=== PATIENT | female | born 2000 | race Caucasian/White ===

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

== ENCOUNTER 2022-02-25 22:50 | Emergency (ER) | payer BC ==
--- OUTSIDE RECORDS SUMMARY | 2022-02-25 22:53 | XMS REPORT | Continuity of Care Document ---
:2000 Author Organization [facility] t Address [address] [place] [address] Care Team Providers Name Role Phone Sanjay Navas Attending Clinician Unavailable SHONA Attending Clinician Unavailable Problems This patient has no known problems. Allergies, Adverse Reactions, Alerts This patient has no known allergies or adverse reactions. Medications Ordered Filled Start Stop Current Ordering Indication Dosage Frequency Signature Comments Components Source Medication Medication Date Date Medication? Clinician (SIG) Name Name Syringe Syringe Yes Alfie as Commo n 213 Navas directed [facility] 00:00: - [facility] Cyanocobala Cyanocobala 2019- No Alfie 1 ml Common min min 2-13 04-21 [facility] 00:00: 00:[address] - [facility] 00 :00 [facility] Wellbutrin Wellbutrin Yes Alfie 1 tablet Common XL XL Navas in the [facility] morning - [facility] Immunizations Ordered Immunization Filled Immunization Date Status Commen ts Source Name Name Gardasil, HPV Gardasil, HPV 2018-11-22 Completed Common [facility] 9-valent, IM 9-valent, IM 00:00:00 - [facility] Gardasil, HPV Gardasil, HPV 2018-07-24 Completed Common S pirit 9-valent, IM 9-valent, IM 00:00:00 - [facility] Gardasil, HPV Gardasil, HPV 2018-05-24 Completed Common S pirit 9-valent, IM 9-valent, IM 00:00:00 [facility] Procedures This patient has no known procedures. Encounters Start End Encounter Admission Attending Care Care Encounter Source Date/Time Date/Time Type Type Clinicians Facility Department ID 2021-11-04 Outpatient Navas, [facility] [id number] Common 12:28:16 Alfie [id number] [facility] 2021-11-04 Outpatient Yosef [facility] ST[facility] [id number] Common 12:23:15 Alfie [id number] [facility] 2021-02-02 2021-02-02 Emergency LE, ROWENA [facility] [id number] [place] 00:00:00 00:00:[address] 2020-10-15 2020-10-15 Outpatient [facility] ST[facility] [id number] Common 00:00:00 00:00:00 [facility] 2018-11-22 2018-11-22 [facility] [id number] Common 16:00:00 16:00:[address] [facility] 2018-07-24 2018-07-24 [facility] [id number] Common 08:15:00 08:15:[address] [facility] 2018-07-12 2018-07-12 [facility] [id number] Common 14:14:00 14:14:[address] [facility] 2018-05-24 2018-05-24 [facility] [id number] Common 13:45:00 13:45:[address] [facility] 2018-05-22 2018-05-22 [facility] [id number] Common 17:11:00 17:11:[address] [facility] 2018-05-16 2018-05-16 [facility] [id number] Common 09:30:00 09:30:[address] [facility] Results This patient has no known results.
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
[2022-02-26 01:16] VITALS: BP 125/87; O2SAT 100
[2022-02-26 01:18] VITALS: TEMP 98.3
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
== END 2022-02-26 00:47 | disposition home or self-care (01) ==
LOC: ER 22:50
DX: S09.90XA Unspecified injury of head, initial encounter (principal); Y04.2XXA Assault by strike against or bumped into by another person, initial encounter; F20.9 Schizophrenia, unspecified
CPT/HCPCS: 70450; 99284

== ENCOUNTER 2022-04-27 18:12 | Emergency (ER) | payer BC ==
[2022-04-27 18:59] LABS: Absolute Lymphocytes (CBC) 1.1 K/uL (0.7-4.9); Hematocrit 38.2 % (36.0-45.0); Lymphocytes % 15.8 % (15.3-44.8); MCV 94.2 fL (80-100); MPV 8.8 fL (7.6-11.3); RBC Red Blood Cell Count 4.06 M/uL (3.86-4.86)
[2022-04-27] MEDS ORDERED: NA CHLORIDE 0.9% 1,000 ML ONE (19:01)
[2022-04-27 19:08] LABS: Potassium 3.7 mmol/L (3.5-5.1)
[2022-04-27 19:53] LABS: Urine Blood Negative (Negative); Urine Glucose Negative (Negative); Urine Protein Negative (Negative)
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
[2022-04-27 21:43] VITALS: TEMP 99.4; O2SAT 100
[2022-04-27 21:51] VITALS: BP 132/84
--- OUTSIDE RECORDS SUMMARY | 2022-04-29 14:38 | XMS REPORT | Continuity of Care Document ---
:[address] [facility] t Address [address] [place] [address] Care Team Providers Name Role Phone Sanjay [...] Alfie as Commo n 213 Navas directed [facility] 00:00: - [facility] Cyanocobala Cyanocobala 2019- No Alfie 1 ml Common min min 2-13 04-21 Navas [facility] 00:00: 00:00 - 00 :00 [facility] Wellbutrin Wellbutrin Yes Alfie 1 tablet Common XL XL Navas in the Spirit morning - [facility] Immunizations Ordered Immunization Filled Immunization Date Status Commen ts Source Name Name Gardasil, HPV Gardasil, HPV 2018-11-22 Completed Common S pirit 9-valent, IM 9-valent, IM 00:00:00 - [facility] Gardasil, HPV Gardasil, HPV 2018-07-24 Completed Common S pirit 9-valent, IM 9-valent, IM 00:00:00 - [facility] Gardasil, HPV Gardasil, HPV 2018-05-24 Completed Common S pirit 9-valent, IM 9-valent, IM 00:00:00 [facility] Procedures This patient has no known procedures. Encounters Start End Encounter Admission Attending Care Care Encounter Source Date/Time Date/Time Type Type Clinicians Facility Department ID 2021-11-04 Outpatient Navas, STSERGEI STLMLC [id number] Common 12:28:16 Alfie [id number] [facility] 2021-11-04 Outpatient Yosef STSERGEI STLMLC [id number] Common 12:23:15 Alfie [id number] [facility] 2021-02-02 2021-02-02 Emergency LE, ROWENA [facility] [id number] [place] 00:00:00 00:00:[address] 2020-10-15 2020-10-15 Outpatient STLMLC STLC [id number] Common 00:00:00 00:00:00 [facility] 2018-11-22 2018-11-22 [facility] [id number] Common 16:00:00 16:00:[address] [facility] 2018-07-24 2018-07-24 [facility] [id number] Common 08:15:00 08:15:[address] [facility] 2018-07-12 2018-07-12 [facility] [id number] Common 14:14:00 14:14:[address] [facility] 2018-05-24 2018-05-24 [facility] [id number] Common 13:45:00 13:45:[address] [facility] 2018-05-22 2018-05-22 [facility] [id number] Common 17:11:00 17:11:[address] [facility] 2018-05-16 2018-05-16 [facility] [id number] Common 09:30:00 09:30:[address] [facility] Results This patient has no known results.
== END 2022-04-27 21:38 | disposition home or self-care (01) ==
LOC: ER 18:12
DX: M54.9 Dorsalgia, unspecified (principal); M62.830 Muscle spasm of back; M54.2 Cervicalgia; V49.49XA Driver injured in collision with other motor vehicles in traffic accident, initial encounter
CPT/HCPCS: 85025; 80048; 36415; 86900; 86850; 81025; 86901; 81003; 70450; 72125; 71260; 74177; Q9967; J7030; 96360; 96361; 99284

== ENCOUNTER 2022-06-22 14:16 | Emergency (ER) | payer BC ==
--- OUTSIDE RECORDS SUMMARY | 2022-06-22 14:19 | XMS REPORT | Continuity of Care Document ---
:2000 Author Organization [facility] t Address [address] [place] [address] Care Team Providers Name Role Phone Asked, No Pcp Primary Care Physician Unavailable Alfie Navas Attending Clinician Unavailable ROWENA NAGEL Attending Clinician Unavailable Problems This patient has no known problems. Allergies, Adverse Reactions, Alerts This patient has no known allergies or adverse reactions. Social History Social Habit Start Date Stop Date Quantity Comments Source History [facility] Drinks History [facility] Tobacco use and 2021-02-02 2021-02-02 Smokeless tobacco [facility] exposure 00:00:00 00:00:00 non-user Hospital Alcohol intake 2021-02-02 2021-02-02 Lifetime [facility] 00:00:00 00:00:00 non-drinker Hospital (finding) History [facility] 2021-02-02 2021-02-02 1 [facility] Alcohol Frequency 00:00:00 00:00:00 Hospita l Sex Assigned At [birth year] [facility] 00:00:00 00:00:00 Hospital Smoking Status Start Date Stop Date Source Never smoked tobacco [facility] Medications Ordered Filled Start Stop Current Ordering Indication Dosage Frequency Signature Comments Components Source Medication Medication Date Date Medication? Clinician (SIG) Name Name No known No No known Metho di medications 02-[address] 15:35: s Hospita 58 l Syringe Syringe Yes Aflie as Commo n 2-13 Navas directed Spirit 00:00: - [facility] 00 [facility] Cyanocobala Cyanocobala 2019-0 2019- No Alfie 1 ml Common min min 2-13 -13 Navas [facility] 00:00: 00:00 - [facility] 00 :00 [facility] Wellbutrin Wellbutrin Yes Alfie 1 tablet Common XL XL Navas in the Spirit morning - [facility] Immunizations Ordered Immunization Filled Immunization Date Status Commen ts Source Name Name Gardasil, HPV Gardasil, HPV 2018-11-22 Completed Common S pirit 9-valent, IM 9-valent, IM 00:00:00 - [facility] Gardasil, HPV Gardasil, HPV 2018-07-24 Completed Common S pirit 9-valent, IM 9-valent, IM 00:00:00 - [facility] Gardasil, HPV Gardasil, HPV 2018-05-24 Completed Common S pirit 9-valent, IM 9-valent, IM 00:00:00 - [facility] Procedures This patient has no known procedures. Plan of Care Planned Activity Planned Date Details Comments Source Future Scheduled 2022-06-22 HEPATITIS B VACCINES Met [facility] Test 14:19:26 (1 of 3 - 3-dose series) [code = HEPATITIS B VACCINES (1 of 3 - 3-dose series)] Future Scheduled 2022-06-22 COVID-19 VACCINE (#1) [facility] Test 14:19:26 [code = COVID-19 VACCINE (#1)] Future Scheduled 2022-06-22 Screening for [facility] Test 14:19:26 Chlamydia trachomatis (procedure) [code = 829663641] Future Scheduled 2022-06-22 Hepatitis C screening [facility] Test 14:19:26 (procedure) [code = 903834780] Future Scheduled 2022-06-22 INFLUENZA VACCINE Method [facility] Test 14:19:26 [code = INFLUENZA VACCINE] Encounters Start End Encounter Admission Attending Care Care Encounter Source Date/Time Date/Time Type Type Clinicians Facility Department ID 2021-11-04 Outpatient Navas, [facility] [id number] Common 12:28:16 Alfie [id number] [facility] 2021-11-04 Outpatient Navas, STLMLC STLMLC [id number] Common 12:23:15 [facility] [id number] [facility] 2021-02-02 2021-02-02 Emergency LEROWENA [facility] [id number] [place] 00:00:00 00:00:[address] 2020-10-15 2020-10-15 Outpatient STLMLC STLMLC [id number] Common 00:00:00 00:00:00 [facility] 2018-11-22 2018-11-22 [facility] [id number] Common 16:00:00 16:00:[address] [facility] 2018-07-24 2018-07-24 [facility] [id number] Common 08:15:00 08:15:[address] [facility] 2018-07-12 2018-07-12 [facility] [id number] Common 14:14:00 14:14:[address] [facility] 2018-05-24 2018-05-24 [facility] [id number] Common 13:45:00 13:45:[address] [facility] 2018-05-22 2018-05-22 [facility] [id number] Common 17:11:00 17:11:[address] [facility] 2018-05-16 2018-05-16 [facility] [id number] Common 09:30:00 09:30:[address] [facility] Results This patient has no known results.
--- NOTE | 2022-06-22 15:52 | ER ---
Nurse's Notes [facility] Name: Kari Kaplan Age: 22 yrs Sex: Female : 2000 Arrival Date: 06/22/2022 Time: 14:19 Bed Waiting Private MD: Diagnosis: ED Course: 06/22 14:19 Patient arrived in ED. rg4 15:12 Louis Esteban PA is PHCP. cp 15:12 Louis Almeida MD is Attending Physician. cp 15:47 Patient's name was called from ER [facility]. No response. Unable to locate patient. Will bm7 disposition as left without being seen by a provider. Administered Medications: No medications were administered Outcome: 15:51 Patient left the ED. jl7 16:03 Patient left the ED. jl7 Signatures: Louis Esteban PA PA cp Garcia, Rubi rg4 Angelita Carroll RN RN jl7 Belinda Molina RN RN bm7
== END 2022-06-22 16:03 | disposition left against medical advice (07) ==
LOC: ER 14:16
DX: Z02.9 Encounter for administrative examinations, unspecified (principal)

== ENCOUNTER 2022-08-23 18:37 | Inpatient (IN) | payer BC ==
[2022-08-23 20:07] LABS: Absolute Lymphocytes (CBC) 0.4 K/uL (0.7-4.9); Lymphocytes % 4.6 % (15.3-44.8); MCV 93.3 fL (80-100); MPV 9.3 fL (7.6-11.3); RBC Red Blood Cell Count 4.29 M/uL (3.86-4.86)
--- OUTSIDE RECORDS SUMMARY | 2022-08-23 20:19 | XMS REPORT | Continuity of Care Document ---
:2000 Author Organization [facility] t Address [address] [place] [address] Care Team Providers Name Role Phone Asked, No Pcp Primary Care Physician Unavailable Alfie Navas Attending Clinician Unavailable ROWENA NAGEL Attending Clinician Unavailable Payers Payer Name Policy Type Policy Number Effective Date Expiration Date S ource Blue Cross and C1 [id number] 2017 Common S pirit Blue Shield 00:00:00 - [facility] Problems Condition Condition Condition Status Onset Resolution Last Treating Co mments Source Name Details Category Date Date Treatment Clinician Date [id number] Bilateral Problem Active Com mon leg Spirit numbness - [facility] [id number] Depression Problem Active Com mon with Spirit anxiety - [facility] [id number] PTSD Problem Active Common (post-trau Spirit matic - [facility] disorder[facility] [id number] Vitamin Problem Active Commo n B12 Spirit deficiency - [facility] [id number] Back pain Problem Active Com mon with Spirit radiculopa - [facility] [id number] Discolorat Problem Active Co mmon ion of Spirit skin of - [facility] multiple [facility] lower [facility] extremity Center Allergies, Adverse Reactions, Alerts This patient has no known allergies or adverse reactions. Social History Social Habit Start Date Stop Date Quantity Comments Source History [facility] Drinks [facility] History of Common Spirit - Tobacco Use [facility] Alcohol intake 2021-02-02 2021-02-02 Lifetime [facility] 00:00:00 00:00:00 non-drinker Hospital (finding) History [facility] 2021-02-02 2021-02-02 1 [facility] Alcohol Frequency 00:00:00 00:00:00 Hospita l Tobacco use and 2021-02-02 2021-02-02 Smokeless tobacco [facility] exposure 00:00:00 00:00:00 non-user Hospital Sex Assigned At [birth year] [facility] 00:00:00 00:00:00 Hospital Smoking Status Start Date Stop Date Source Never Smoker Common [facility] Medications Ordered Filled Start Stop Current Ordering Indication Dosage Frequency Signature Comments Components Source Medication Medication Date Date Medication? Clinician (SIG) Name Name No known No No known Metho di medications 02-[address] 15:35: s Hospita 58 l No known No No known Metho di medications 02-[address] 15:35: s Hospita 58 l Syringe Syringe Yes Alfie as Commo n 13 Navas directed Spirit 00:00: - [facility] Cyanocobala Cyanocobala 2019- No Alfie 1 ml Common min min 213 04-21 Navas Spirit 00:00: 00:[address] [facility] 00 :00 [facility] Wellbutrin Wellbutrin Yes Alfie 1 tablet Common XL XL Navas in the Spirit morning - [facility] Aripiprazol Aripiprazol No Aripiprazo e 5 MG e 5 MG le 5 MG BuPROPion BuPROPion No BuPROPion HCl 75 MG HCl 75 MG HCl 75 MG Lamotrigine Lamotrigine No Lamotrigin 25 MG 25 MG e 25 MG Cyanocobala Cyanocobala No Cyanocobal min 1000 min 1000 ng 1000 MCG/ML MCG/ML MCG/ML Quetiapine Quetiapine No Quetiapine Fumarate 25 Fumarate 25 Fumarate MG MG 25 MG Syringe 25G Syringe 25G No Syringe X 1" 3 ML X 1" 3 ML 25G X 1" 3 ML Immunizations Ordered Immunization Filled Immunization Date Status Commen ts Source Name Name Gardasil, 9-valent Gardasil, 9-valent 2018-11-22 Completed Common Spirit 16:25:00 - [facility] Vitamin B12 Vitamin B12 2018-11-22 Completed Common Spiri t (Cyanocobalamin) (Cyanocobalamin) 16:24:00 - [facility] Gardasil, HPV Gardasil, HPV 2018-11-22 Completed Common S pirit 9-valent, IM 9-valent, IM 00:00:00 [facility] Vitamin B12 Vitamin B12 2018-07-24 Completed Common Spiri t (Cyanocobalamin) (Cyanocobalamin) 09:01:00 - [facility] Gardasil, 9-valent Gardasil, 9-valent 2018-07-24 Completed Common Spirit 08:59:00 - [facility] Gardasil, HPV Gardasil, HPV 2018-07-24 Completed Common S pirit 9-valent, IM 9-valent, IM 00:00:00 [facility] Vitamin B12 Vitamin B12 2018-05-24 Completed Common Spiri t (Cyanocobalamin) (Cyanocobalamin) 14:07:00 - [facility] Gardasil, 9-valent Gardasil, 9-valent 2018-05-24 Completed Common Spirit 14:06:00 - [facility] Gardasil, HPV Gardasil, HPV 2018-05-24 Completed Common S pirit 9-valent, IM 9-valent, IM 00:00:00 [facility] Vital Signs Vital Name Observation Time Observation Value Comments Source height 2020-10-15 10:50:00 62 [in_i] Common S pirit [facility] weight 2020-10-15 10:50:00 129.6 [lb_av] Common Spirit [facility] temperature 2020-10-15 10:50:00 97.5 [degF] [facility] bmi 2020-10-15 10:50:00 23.7 [facility] oximetry 2020-10-15 10:50:00 100 % [facility] respiratory rate 2020-10-15 10:50:00 16 /min Comm on Spirit - [facility] blood pressure 2020-10-15 10:50:00 128 mm[Hg] Common Spirit - systolic [facility] blood pressure 2020-10-15 10:50:00 75 mm[Hg] Common Spirit - diastolic [facility] Procedures This patient has no known procedures. Plan of Care Planned Activity Planned Date Details Comments Source Future Scheduled 2022-08-16 COVID-19 VACCINE (#1) [facility] Test 20:59:33 [code = COVID-19 VACCINE (#1)] Future Scheduled 2022-08-16 Screening for [facility] Test 20:59:33 Chlamydia trachomatis (procedure) [code = [id number]] Future Scheduled 2022-08-16 Hepatitis C screening [facility] Test 20:59:33 (procedure) [code = 563129429] Future Scheduled 2022-08-16 INFLUENZA VACCINE Method [facility] Test 20:59:33 [code = INFLUENZA VACCINE] Future Scheduled 2022-08-16 HEPATITIS B VACCINES Met [facility] Test 20:59:33 (1 of 3 - 3-dose series) [code = HEPATITIS B VACCINES (1 of 3 - 3-dose series)] Future Scheduled 2022-06-22 HEPATITIS B VACCINES Met [facility] Test 14:19:26 (1 of 3 - 3-dose series) [code = HEPATITIS B VACCINES (1 of 3 - 3-dose series)] Future Scheduled 2022-06-22 COVID-19 VACCINE (#1) [facility] Test 14:19:26 [code = COVID-19 VACCINE (#1)] Future Scheduled 2022-06-22 [facility] 14:19[facility]26 Chlamydia trachomatis (procedure) [code = [id number]] Future Scheduled 2022-06-22 Hepatitis C screening [facility] Test 14:19:26 (procedure) [code = 810696780] Future Scheduled 2022-06-22 INFLUENZA VACCINE Method [facility] Test 14:19:26 [code = INFLUENZA VACCINE] Encounters Start End Encounter Admission Attending Care Care Encounter Source Date/Time Date/Time Type Type Clinicians Facility Department ID 2021-11-04 Outpatient Yosef [facility] [id number] Common 12:28:16 Alfie [id number] [facility] 2021-11-04 Outpatient Navas, STLMLC STLMLC [id number] Common 12:23:15 Alfie [id number] [facility] 2021-02-02 2021-02-[address] [facility] [id number] [place] 00:00:00 00:00:[address] 2020-10-15 2020-10-15 OFFICE STLMLC STLMLC [id number] Co mmon 00:00:00 00:00:00 VISIT Spirit ESTAB PT - [facility] LEVEL 4 [facility] 2018-11-22 2018-11-22 [facility] [id number] Common 16:00:00 16:00:[address] [facility] 2018-07-24 2018-07-24 Out[facility] [id number] Common 08:15:00 08:15:[address] [facility] 2018-07-12 2018-07-12 Outpatient [facility] [id number] Common 14:14:00 14:14:[address] [facility] 2018-05-24 2018-05-24 Out[facility] [id number] Common 13:45:00 13:45:[address] [facility] 2018-05-22 2018-05-22 Out[facility] [id number] Common 17:11:00 17:11:[address] [facility] 2018-05-16 2018-05-16 [facility] [id number] Common 09:30:00 09:30:[address] [facility] Results This patient has no known results.
[2022-08-23 20:22] LABS: Albumin 3.9 g/dL (3.4-5.0); Bilirubin Total 0.3 mg/dL (0.2-1.0); Potassium 4.5 mmol/L (3.5-5.1); Protein, Total 7.7 g/dL (6.4-8.2)
[2022-08-23 21:03] LABS: Blood Morphology Comment NOT SEEN (NOT SEEN); Platelet Estimate ADEQ
[2022-08-23] MEDS ORDERED: TENECTEPLASE 50 MG/10 ML VIAL IV ONE (21:04)
--- NOTE | 2022-08-23 21:39 | P.HP ---
Certification for Inpatient Patient admitted to: Observation With expected LOS: <2 Midnights Patient will require the following post-hospital care: None Practitioner: I am a practitioner with admitting privileges, knowledge of patient current condition, hospital course, and medical plan of care. Services: Services provided to patient in accordance with Admission requirements found in Title 42 Section 412.3 of the Code of Federal Regulations Patient History Date of Service: 08/24/22 Reason for admission: CVA History of Present Illness: Patient is a 22-year-old female with past medical history significant for bipolar, schizophrenia, depression, anxiety, PTSD, and epilepsy who presented to the ED with complaints of slurred speech. Patient reports that she was at a friend's house when she had onset of slurred speech, right-sided facial droop, and left sided weakness. Initial NIHSS 3. Head CT negative for bleed. Dr. Rader was contacted and recommended TNKase, which was administered after risks and benefits discussed with patient. Head and neck CTA negative for flow abnormalities. UDS positive for cocaine and THC. Other labs within normal limits. Vital signs stable. Deficits have since resolved. She is admitted to ICU for monitoring after receiving TNK. Allergies morphine Allergy (Intermediate, Verified 08/23/22 19:48) Anaphylaxis Home medications list reviewed: Yes - Past Medical/Surgical History Diabetic: No -: Schizophrenia -: Bipolar -: Depression -: Anxiety -: Epilepsy Past Surgical History: Patient denies surgical history - Family History Family History: Reviewed- Non-Contributory - Social History Smoking Status: Never smoker Alcohol use: Yes CD- Drugs: Yes Caffeine use: Yes Place of Residence: Home Review of Systems Neurological: Change in Speech, As per HPI Physical Examination - Physical Exam General: Alert, In no apparent distress HEENT: Atraumatic, PERRLA, EOMI, Sclerae nonicteric Neck: Supple, 2+ carotid pulse no bruit, No LAD, Without JVD or thyroid abnormality Respiratory: Clear to auscultation bilaterally, Normal air movement Cardiovascular: Regular rate/rhythm, Normal S1 S2 Gastrointestinal: Normal bowel sounds, No tenderness Musculoskeletal: No tenderness Integumentary: No rashes Neurological: Normal gait, Normal strength at 5/5 x4 extr, Normal tone, Normal affect, Abnormal speech - Studies Laboratory Data (last 24 hrs) 08/23/22 19:55: Sodium 137, Potassium 4.5, BUN 11, Creatinine 1.01, Glucose 122 H, Total Bilirubin 0.3, AST 11 L, ALT 14, Alkaline Phosphatase 83 08/23/22 19:55: WBC 7.70, Hgb 13.1, Hct 40.0, Plt Count 243 Assessment and Plan - Problems (Diagnosis) (1) CVA (cerebral vascular accident) Current Visit: Yes Status: Acute Qualifiers: CVA mechanism: unspecified Qualified Code(s): I63.9 - Cerebral infarction, unspecified (2) Epilepsy Current Visit: Yes Status: Chronic Qualifiers: Epilepsy type: unspecified Intractability: not intractable Status epilepticus: without status epilepticus Qualified Code(s): G40.909 - Epilepsy, unspecified, not intractable, without status epilepticus (3) Schizophrenia Current Visit: Yes Status: Chronic Qualifiers: Schizophrenia type: unspecified Qualified Code(s): F20.9 - Schizophrenia, unspecified (4) Bipolar 1 disorder Current Visit: Yes Status: Chronic - Plan Patient is admitted for observation to ICU s/p TNK administration. Stroke like symptoms have resolved. Brain CT and head/neck CT angio negative. MRI and echo ordered for morning. CVA unlikely. Symptoms could be drug, psychiatric, or seizure related. Neuro monitoring. NPO until patient passes bedside swallow. Physical therapy and speech therapy consult. Neurology consult. Lipid panel ordered. Monitor and replete electrolytes per protocol. Full code. Discharge Plan: Home Plan to discharge in: 24 Hours - Advance Directives Does patient have a Living Will: No Does patient have a Durable POA for Healthcare: No - Code Status/Comfort Care Code Status Assessed: Yes (Full) Critical Care: No Time Spent Managing Pts Care (In Minutes): 50
[2022-08-23 21:43] LABS: SARS-CoV-2 Antigen Rapid Res Negative (Negative)
[2022-08-23 21:50] LABS: Urine Blood Negative (Negative); Urine Glucose Negative (Negative); Urine Protein Negative (Negative); Urine pH 8.5 (5.0-7.0)
[2022-08-23 22:10] LABS: Barbiturates NEGATIVE (NEGATIVE); Benzodiazepines NEGATIVE (NEGATIVE); Cocaine POSITIVE (NEGATIVE); METHAMPHETAM NEGATIVE (NEGATIVE); Methadone NEGATIVE (NEGATIVE); Opiates NEGATIVE (NEGATIVE); Phencyclidine NEGATIVE (NEGATIVE); THC Cannibis POSITIVE (NEGATIVE)
--- NOTE | 2022-08-23 22:45 | RAD REPORT ---
EXAM DESCRIPTION: CT - Head angio - 08/23/2022 10:34 pm CLINICAL HISTORY: cva r/o Headache, drowsiness, CVA symptomology COMPARISON: Ct Stroke Brain Wo Cont dated 08/23/2022; Head Brain Wo Cont dated 02/25/2022 TECHNIQUE: CT angiography of the head was performed with MIPs. All CT scans are performed using dose optimization technique as appropriate and may include automated exposure control or mA/KV adjustment according to patient size. FINDINGS: No evidence of aneurysm is detected. No flow-limiting stenosis or vascular malformation id entified. Antegrade flow is seen in the vertebral arteries. Mildly dominant right vertebral artery. The visualized dural venous sinuses are patent. IMPRESSION: No significant flow abnormality is detected.
--- NOTE | 2022-08-23 22:47 | RAD REPORT ---
EXAM DESCRIPTION: CT - Neck Angio - 08/23/2022 10:34 pm CLINICAL HISTORY: cva r/o Headache, drowsiness, CVA symptomology COMPARISON: Ct Stroke Brain Wo Cont dated 08/23/2022; Head angio dated 08/23/2022 TECHNIQUE: CT angiography of the neck vessels was performed with MIPs. All CT scans are performed using dose optimization technique as appropriate and may include automated exposure control or mA/KV adjustment according to patient size. FINDINGS: A left aortic arch is identified with normal three vessel configuration of the great vesse ls. No significant flow abnormality is seen of the common carotid bilaterally. No significant stenosis is identified involving the cervical segments of both internal carotid arteri es. The right vertebral artery is dominant. Left vertebral artery is diminutive in size. IMPRESSION: No significant flow abnormality of the neck vessels is identified.
[2022-08-24] MEDS ORDERED: NA CHLORIDE 0.9% 1,000 ML IV SCH (00:34)
[2022-08-24] MEDS ORDERED: ACETAMINOPHEN 500 MG TAB PO PRN (00:34)
[2022-08-24] MEDS ORDERED: ONDANSETRON 4 MG/2 ML VIAL IV PRN (00:34)
[2022-08-24 03:01] VITALS: BMI 19.3
[2022-08-24 05:22] LABS: Absolute Lymphocytes (CBC) 1.8 K/uL (0.7-4.9); Hematocrit 39.1 % (36.0-45.0); Lymphocytes % 20.7 % (15.3-44.8); MCV 93.6 fL (80-100); MPV 9.5 fL (7.6-11.3); RBC Red Blood Cell Count 4.18 M/uL (3.86-4.86)
[2022-08-24 05:31] LABS: Protime INR 1.13
[2022-08-24 05:43] LABS: Magnesium 2.4 mg/dL (1.8-2.4); Phosphorus 3.5 mg/dL (2.5-4.9); Potassium 3.5 mmol/L (3.5-5.1); Thyroid Stimulating Hormone 0.479 uIU/mL (0.360-3.740)
[2022-08-24] MEDS ORDERED: NA CHLORIDE 0.9% 1,000 ML ONE (06:01)
[2022-08-24 06:07] VITALS: O2SAT 100
[2022-08-24] MEDS ORDERED: INFLUENZA VACCINE (for 6+ mo) 0.5 ML DOSE IMVAC ONE (08:00)
--- NOTE | 2022-08-24 09:17 | RAD REPORT ---
EXAM DESCRIPTION: MRI - Brain W/Wo Cont - 08/24/2022 9:11 am CLINICAL HISTORY: R/O CVA Headache, drowsiness, CVA symptomology COMPARISON: MRA Head Wo Cont dated 08/24/2022 TECHNIQUE: Multi-sequence, multiplanar MR imaging of the brain was performed with contrast. FINDINGS: No intracranial hemorrhage, hydrocephalus, or extra-axial fluid collection. No edema or sh ift of midline structures. No intracranial mass. DWI is negative for acute CVA. The midline structures are normally formed. Mastoid air cells and paranasal sinuses are clear. Post-contrast images show no abnormal enhancement to suggest tumor or infection. IMPRESSION: Negative for acute CVA or other acute intracranial abnormality.
--- NOTE | 2022-08-24 09:18 | RAD REPORT ---
EXAM DESCRIPTION: MRI - MRA Head Wo Cont - 08/24/2022 8:43 am CLINICAL HISTORY: CVA CVA COMPARISON: Head angio dated 08/23/2022 FINDINGS: 3D noncontrast [id number] MR angiography of the [place] was performed. No aneurysm, flow-limiting stenosis or vascular malformation is seen. Right vertebral artery is domin ant. The left vertebral artery intracranial portion is quite diminutive. The visualized dural venous sinuses appear patent. IMPRESSION: No significant flow abnormality of the [place] is identified.
--- NOTE | 2022-08-24 09:20 | RAD REPORT ---
EXAM DESCRIPTION: MRI - MRA Neck W/Wo Cont - 08/24/2022 8:43 am CLINICAL HISTORY: R/O CVA Headache, drowsiness, CVA symptomology COMPARISON: Neck Angio dated 08/23/2022 FINDINGS: Contrast enhance 2D [id number] MR angiography of the neck vessels was performed. Left aortic arch is noted. Normal great vessel branching pattern is seen. Subclavian arteries and com mon carotid arteries are patent bilaterally. Internal carotid arteries are patent bilaterally without stenosis or flow abnormality. Right vertebral artery is dominant. Left vertebral artery is diminutive but patent. IMPRESSION: No significant flow abnormality is seen of the neck vessels.
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
--- NOTE | 2022-08-24 13:22 | RAD REPORT ---
EXAM DESCRIPTION: CT - Abdomen Pelvis W Contrast - 08/24/2022 12:54 pm CLINICAL HISTORY: abd pain; COMPARISON: Abdomen Pelvis W Contrast dated 12/12/2019 TECHNIQUE: Biphasic, helical CT imaging of the abdomen and pelvis was performed following 100 ml non -ionic IV contrast. Oral contrast: No. All CT scans are performed using dose optimization technique as appropriate and may include automated exposure control or mA/KV adjustment according to patient size. FINDINGS: No suspicious findings in the lung bases. The liver, spleen, and pancreas show no suspicious findings. Gallbladder is only partially filled. No gross abnormality seen. Gallstones can be occult on CT imaging. Biliary tree is not dilated. Symmetric renal function is seen with no hydronephrosis or suspicious renal mass. No pyelonephritis o r acute parenchymal process. No bladder abnormalities. No adrenal abnormalities. Retroflexed uterus i s grossly normal. Ovaries are indistinguishable from the adjacent on opacified small bowel. An acute or primary ovarian process is not suspected. No dilated bowel loops or bowel wall thickening. Appendix is not clearly defined. No direct or indire ct evidence for appendicitis. Stomach is filled with fluid. There is moderate stool volume throughout the colon. No free air, free fluid or inflammatory stranding. No hernia, mass or bulky lymphadenopa thy. No suspicious bony findings. IMPRESSION: Contrast enhanced CT abdomen and pelvis showing no acute or emergent finding. No significant change from the 2019 study.
--- NOTE | 2022-08-24 14:54 | ECHO ---
HEIGHT: 5 ft 2 in WEIGHT: 105 lb 13.15 oz DATE OF STUDY: 08/24/[address]: Maria Elena Arnold 2-DIMENSIONAL: YES M.MODE: YES DOPPLER: YES COLOR FLOW: YES TDS: PORTABLE: YES DEFINITY: BUBBLE STUDY: YES DIAGNOSIS: STROKE CARDIAC HISTORY: CATHERIZATION: NO SURGERY: NO PROSTHETIC VALVE: NO PACEMAKER: NO MEASUREMENTS (cm) DIASTOLIC (NORMALS) SYSTOLIC (NORMALS) IVSd 0.9 (0.6-1.2) LA Diam 1.6 (1.9-4.0) LVEF 60-65% LVIDd 3.1 (3.5-5.7) LVIDs 1.7 (2.0-3.5) %FS 46% LVPWd 0.9 (0.6-1.2) Ao Diam 2.1 (2.0-3.7) 2 DIMENSIONAL ASSESSMENT: RIGHT ATRIUM: NORMAL LEFT ATRIUM: NORMAL RIGHT VENTRICLE: NORMAL LEFT VENTRICLE: NORMAL TRICUSPID VALVE: NORMAL MITRAL VALVE: NORMAL PULMONIC VALVE: NORMAL AORTIC VALVE: NORMAL PERICARDIAL EFFUSION: NONE AORTIC ROOT: NORMAL LEFT VENTRICULAR WALL MOTION: NORMAL DOPPLER/COLOR FLOW: NORMAL COMMENTS: 1. NORMAL LEFT VENTRICULAR EJECTION FRACTION 60-65%. 2. NORMAL WALL MOTION 3. NORMAL DIASTOLIC FUNCTION 4. BUBBLE STUDY IS POSITIVE, LIKELY A PATENT FORAMEN OVALE TECHNOLOGIST: GINA JOHNSON
[2022-08-24] MEDS ORDERED: ATORVASTATIN 40 MG TAB PO SCH (21:00)
[2022-08-24 21:34] VITALS: BP 116/71; TEMP 98.5
== END 2022-08-24 21:25 | disposition home or self-care (01) | DRG 101 ==
LOC: ER 18:37 → ERHOLD 20:13 → UNDOADMOB 20:13 → ERHOLD 21:32 → OBSVTOIN 08-24 13:44
PROVIDERS: ADMIT Hospitalist; ATTEND Hospitalist
DX: G40.909 Epilepsy, unspecified, not intractable, without status epilepticus (principal); F20.9 Schizophrenia, unspecified; F31.9 Bipolar disorder, unspecified; T40.5X5A Adverse effect of cocaine, initial encounter; T40.715A Adverse effect of cannabis, initial encounter; R47.81 Slurred speech; R29.703 NIHSS score 3; R29.810 Facial weakness; Z88.5 Allergy status to narcotic agent; Z20.822 Contact with and (suspected) exposure to COVID-19
CPT/HCPCS: 36415; 70450; 70496; 70498; 70544; 70549; 70553; 74177; 80048; 80053; 80061; 80307; 81003; 82947; 83735; 84100; 84443; 84484; 85025; 85610; 85730; 87811; 92523; 93306; 94760; 97161; A9577; G0378; J3101; J7030; Q9967